=== PATIENT | female | born 1950 | race Caucasian/White ===

== ENCOUNTER 2020-08-09 11:29 | Outpatient (REF) | payer MEDICARE, BC, SELFPAY ==
--- NOTE | 2020-08-09 11:33 | MM_ITS ---
EXAMINATION: BONE DENSITOMETRY CLINICAL INDICATION: Age-related osteoporosis without current pathological fracture. COMPARISON: Baseline BD dated 07/19/2018. TECHNIQUE: Using a JDF DXA System (software version: 13.1) manufactured by [employer], dual-energy x-ray absorptiometry was performed of the lumbar spine and left hip. The images are of good technical quality. Summary results are attached. FINDINGS: AP SPINE L1-L4: Current: BMD 1.048 g/cm2, Z-score 0.5, T-score -1.1, osteopenia, 3.7% increase from baseline (<5% change is not significant). Baseline: BMD 1.011 g/cm2. LEFT FEMUR, NECK: Current: BMD 0.689 g/cm2, Z-score -0.8, T-score -2.5, osteoporosis. Baseline: BMD 0.674 g/cm2. LEFT FEMUR, TOTAL: Current: BMD 0.845 g/cm2, Z-score 0.2, T-score -1.3, osteopenia, 8.3% increase from baseline (<5% change is not significant). Baseline: BMD 0.780 g/cm2. IDENTIFIED RISK FACTORS: Menopause, family history (parental hip fracture). HISTORY OF FRACTURE: None listed. MEDICATIONS: Calcium supplements or multivitamin, vitamin D, bisphosphonates. MM/XR DEXA axial skeleton IMPRESSION: 1. DIAGNOSIS: Osteoporosis based on the lowest T-score value of -2.5 in the femoral neck applying World Health Organization criteria. 2. 10-YEAR FRACTURE RISK PREDICTION, FRAX: Major osteoporotic fracture (clinical spine, forearm, hip or shoulder) 25.1%. Hip fracture 11.3%. 3. Treatment Recommendations: NOF guidelines recommend consideration for treatment in postmenopausal women and men age 50 and older presenting with the following: -A hip or vertebral (clinical or morphometric) fracture. -T-score less than or equal to -2.5 at the femoral neck or spine after appropriate evaluation to exclude secondary causes. -Low bone mass at the hip or spine and a 10-year fracture probability by FRAX of greater than or equal to 3% for hip fracture or greater than or equal to 20% for major osteoporotic fracture based on the [place] adapted WHO algorithm. 4. Other Recommendations: All treatment decisions require clinical judgment and consideration of individual patient factors, including patient preferences, comorbidities, previous drug use, risk factors not captured in the FRAX model (e.g. frailty, falls, vitamin D deficiency, increased bone turnover, interval significant decline in bone density) and possible under or overestimation of fracture risk by FRAX. Additional medical evaluation for secondary cause of low bone mineral density may be appropriate. FUTURE SCAN RECOMMENDATION: People with diagnosed cases of osteoporosis or at high risk for fracture should have regular bone mineral density tests. For patients eligible for Medicare, routine testing is allowed once every 2 years. The testing frequency can be increased to one year for patients who have rapidly progressing disease, those who are receiving or discontinuing medical therapy to restore bone mass, or have additional risk factors.
== END 2020-08-09 11:30 | disposition home or self-care (01) ==
LOC: HO.MAMMO 11:29
PROVIDERS: PCP Internal Medicine; Visit Provider Internal Medicine Endocrinology, Diabetes & Metabolism
DX: M81.0 Age-related osteoporosis without current pathological fracture (principal)
CPT/HCPCS: 77080

== ENCOUNTER 2020-08-23 10:19 | Outpatient (REF) | payer MEDICARE, BC, SELFPAY ==
[2020-08-23 11:21] LABS: Hematocrit 37.7 % (37-47); Hemoglobin 12.9 g/dl (12.0-16.0); Mean Corpuscular HGB Conc 34.2 g/dl (31.0-35.0); Mean Corpuscular Hemoglobin 30.7 pg (27.0-33.0); Mean Corpuscular Volume 89.8 fL (80-98); Mean Platelet Volume 9.3 fL (9.4-12.3); Platelet Count 265 X10*3/uL (160-400); Red Cell Distribution Width 12.3 % (11.0-16.0); White Blood Count 6.7 X10*3/uL (4.8-10.8)
[2020-08-23 11:27] LABS: Estimated Average Glucose 111 mg/dL; Hemoglobin A1c % 5.5 %
[2020-08-23 11:43] LABS: Alanine Aminotransferase 16 U/L (0-31); Albumin Level 4.1 g/dL (3.5-5.0); Alkaline Phosphatase 63 U/L (39-117); Anion Gap 12 (12-20); Aspartate Amino Transferase 21 U/L (5-31); Bilirubin Total 0.5 mg/dL (0.0-1.0); Blood Urea Nitrogen 26 mg/dL (9-16); Calcium 8.9 mg/dL (8.4-10.2); Carbon Dioxide 27 mmol/L (22-29); Chloride 105 mmol/L (96-108); Cholesterol 164 mg/dL; Estimated Glomerular Filt Rate 56; Glucose Fasting 101 mg/dL (60-99); HDL Cholesterol 48 mg/dL; LDL Cholesterol Calculated 76 mg/dl; Potassium 4.2 mmol/l (3.3-5.1); Sodium 140 mmol/L (135-145); Total Protein 6.5 g/dL (6.5-8.0); Triglycerides 203 mg/dL
[2020-08-23 11:52] LABS: Thyroid Stimulating Hormone 2.09 uIU/mL (0.32-4.0); Vitamin D 25-OH Total 31.5 ng/mL (>30)
[2020-08-27 09:02] LABS: N-Telopeptide 15 (see note); NTXCreaRU 105 mg/dL (20-275)
== END 2020-08-23 10:20 | disposition home or self-care (01) ==
LOC: HO.HMGCLDS 10:19
PROVIDERS: PCP Internal Medicine; Visit Provider Internal Medicine Endocrinology, Diabetes & Metabolism
DX: M81.0 Age-related osteoporosis without current pathological fracture (principal); R73.03 Prediabetes; E78.5 Hyperlipidemia, unspecified
CPT/HCPCS: 36415; 80053; 80061; 82306; 82523; 83036; 84443; 85027

== ENCOUNTER → 2020-08-27 09:00 | Outpatient (BNVA) | payer MEDICARE, BC, SELFPAY | PROVIDERS: PCP Internal Medicine; Visit Provider Internal Medicine Endocrinology, Diabetes & Metabolism | DX: M81.0 Age-related osteoporosis without current pathological fracture (principal); E04.1 Nontoxic single thyroid nodule; Z87.898 Personal history of other specified conditions | CPT/HCPCS: 99212 ==

== ENCOUNTER 2020-09-13 10:17 | Outpatient (REF) | payer MEDICARE, BC, SELFPAY ==
--- NOTE | ~2020-09-13 | US_ITS ---
EXAMINATION: US THYROID CLINICAL INFORMATION: Nontoxic single thyroid nodule. COMPARISON: Ultrasound soft tissue head/neck thyroid dated 08/17/2016. TECHNIQUE: Linear transducer grayscale and color Doppler examination with attention to the region of the thyroid. FINDINGS: SIZE: Measurements of the thyroid lobes and nodules are given in sagittal, anteroposterior and transverse dimensions respectively. Right Thyroid Lobe: 4.7 x 1.2 x 1.6 cm, volume 4.8 mL. Previously 4.7 x 1.5 x 1.6 cm, volume 5.8 mL. Parenchyma: The gland echotexture is homogeneous. Thyroid vascularity is increased. Left Thyroid Lobe: 4.6 x 1.3 x 1.4 cm, volume 4.2 mL. Previously 4.2 x 1.2 x 1.5 cm, volume 3.8 mL. Parenchyma: The gland echotexture is homogeneous. Thyroid vascularity is increased. Isthmus: 0.3 cm in maximum AP dimension. Previously 0.2 cm. No focal thyroid nodule is seen. NODES: No lymphadenopathy is seen in the tissue surrounding the thyroid gland. US/US thyroid IMPRESSION: Normal thyroid ultrasound. No nodule seen.
== END 2020-09-13 10:18 | disposition home or self-care (01) ==
LOC: HO.HMGCX 10:17
PROVIDERS: PCP Internal Medicine; Visit Provider Internal Medicine Endocrinology, Diabetes & Metabolism
DX: E04.1 Nontoxic single thyroid nodule (principal)
CPT/HCPCS: 76536

== ENCOUNTER 2021-03-26 15:26 | Outpatient (REF) | payer MEDICARE, BC, SELFPAY | END 2021-03-26 15:27 | disposition home or self-care (01) | LOC: HO.LNP 15:26 | PROVIDERS: Visit Provider Physician Assistant | DX: J02.9 Acute pharyngitis, unspecified (principal); Z20.822 Contact with and (suspected) exposure to COVID-19 | CPT/HCPCS: U0003; U0005 ==

== ENCOUNTER 2021-09-13 09:12 | Outpatient (REF) | payer MEDICARE, BC, SELFPAY ==
[2021-09-13 11:45] LABS: Estimated Average Glucose 117 mg/dL; Hemoglobin A1c % 5.7 %
[2021-09-13 11:53] LABS: Appearance Urine HAZY; Color Urine YELLOW; Glucose Urine UA NEG (NEG); Leukocyte Esterase Urine TRACE (NEG); Nitrite Urine NEG (NEG); Specific Gravity - Urine >= 1.030 (1.005-1.025); Urine Blood TRACE (NEG); Urine Ketones 5 MG/DL (NEG); Urine Protein TRACE MG/DL (NEG-TRACE)
[2021-09-13 12:12] LABS: Alanine Aminotransferase 17 U/L (0-31); Alkaline Phosphatase 57 U/L (39-117); Anion Gap 11 (12-20); Aspartate Amino Transferase 20 U/L (5-31); Bilirubin Total 0.6 mg/dL (0.0-1.0); Blood Urea Nitrogen 21 mg/dL (9-16); Calcium 9.3 mg/dL (8.4-10.2); Carbon Dioxide 27 mmol/L (22-29); Chloride 107 mmol/L (96-108); Cholesterol 183 mg/dL; Estimated Glomerular Filt Rate 56; Glucose Fasting 100 mg/dL (60-99); HDL Cholesterol 43 mg/dL; LDL Cholesterol Calculated 87 mg/dl; Potassium 4.2 mmol/L (3.3-5.1); Sodium 141 mmol/L (135-145); Total Protein 6.5 g/dL (6.5-8.0); Triglycerides 266 mg/dL
[2021-09-13 12:21] LABS: TSH reflex Free T4 2.51 uIU/mL (0.32-4.0); Vitamin D 25-OH Total 34.2 ng/mL (>30)
[2021-09-13 12:28] LABS: Calcium Oxalate Crystals Urine 2+ /LPF; Mucus Urine 1+ /LPF; RBC Urine 0-2 /HPF (0); Squamous Epithelial Cell Urine 1+ /LPF; WBC Urine 0-2 /HPF (0-4)
== END 2021-09-13 09:13 | disposition home or self-care (01) ==
LOC: HO.HMGCLDS 09:12
PROVIDERS: Visit Provider Internal Medicine
DX: E55.9 Vitamin D deficiency, unspecified (principal); E78.5 Hyperlipidemia, unspecified; I10 Essential (primary) hypertension; M81.0 Age-related osteoporosis without current pathological fracture; Z87.898 Personal history of other specified conditions
CPT/HCPCS: 36415; 80053; 80061; 81001; 82306; 83036; 84443

== ENCOUNTER 2022-01-17 08:37 | Outpatient (REF) | payer MEDICARE, BC, SELFPAY ==
[2022-01-17 11:57] LABS: Estimated Average Glucose 111 mg/dL; Hemoglobin A1c % 5.5 %
[2022-01-17 12:04] LABS: Appearance Urine CLOUDY; Color Urine YELLOW; Glucose Urine UA NEG (NEG); Leukocyte Esterase Urine TRACE (NEG); Nitrite Urine NEG (NEG); Specific Gravity - Urine >= 1.030 (1.005-1.025); Urine Blood 1+ (NEG); Urine Ketones NEG (NEG); Urine Protein NEG (NEG-TRACE)
[2022-01-17 12:15] LABS: Alanine Aminotransferase 15 U/L (0-31); Albumin Level 4.1 g/dL (3.5-5.0); Alkaline Phosphatase 58 U/L (39-117); Anion Gap 11 (12-20); Aspartate Amino Transferase 18 U/L (5-31); Bilirubin Total 0.6 mg/dL (0.0-1.0); Blood Urea Nitrogen 26 mg/dL (9-16); Calcium 9.3 mg/dL (8.4-10.2); Carbon Dioxide 28 mmol/L (22-29); Chloride 107 mmol/L (96-108); Cholesterol 159 mg/dL; Estimated Glomerular Filt Rate 53; Glucose Fasting 103 mg/dL (60-99); HDL Cholesterol 45 mg/dL; LDL Cholesterol Calculated 84 mg/dl; Potassium 4.2 mmol/L (3.3-5.1); Sodium 142 mmol/L (135-145); Total Protein 6.4 g/dL (6.5-8.0); Triglycerides 154 mg/dL
[2022-01-17 12:48] LABS: Amorphous Sediment Urine 3+ /LPF; Calcium Oxalate Crystals Urine 1+ /LPF; Mucus Urine 2+ /LPF; Squamous Epithelial Cell Urine 2+ /LPF
== END 2022-01-17 08:38 | disposition home or self-care (01) ==
LOC: HO.HMGCLDS 08:37
PROVIDERS: PCP Internal Medicine; Visit Provider Physician Assistant Medical
DX: I10 Essential (primary) hypertension (principal); E78.5 Hyperlipidemia, unspecified; L21.8 Other seborrheic dermatitis; B35.1 Tinea unguium
CPT/HCPCS: 36415; 80053; 80061; 81001; 83036

== ENCOUNTER 2022-01-23 11:50 | Outpatient (REF) | payer MEDICARE, BC, SELFPAY ==
[2022-01-23 14:18] LABS: Appearance Urine CLEAR; Color Urine YELLOW; Glucose Urine UA NEG (NEG); Leukocyte Esterase Urine NEG (NEG); Nitrite Urine NEG (NEG); Specific Gravity - Urine <= 1.005 (1.005-1.025); Urine Blood TRACE (NEG); Urine Ketones NEG (NEG); Urine Protein NEG (NEG-TRACE)
[2022-01-23 14:40] LABS: RBC Urine 0-2 /HPF (0); Squamous Epithelial Cell Urine 1+ /LPF; WBC Urine 0-2 /HPF (0-4)
== END 2022-01-23 11:51 | disposition home or self-care (01) ==
LOC: HO.HMGCLDS 11:50
PROVIDERS: PCP Internal Medicine; Visit Provider Internal Medicine
DX: E55.9 Vitamin D deficiency, unspecified (principal); M81.0 Age-related osteoporosis without current pathological fracture
CPT/HCPCS: 36415; 81001; 82306

== ENCOUNTER 2022-03-28 16:06 | Outpatient (REF) | payer MEDICARE, BC, SELFPAY ==
--- NOTE | ~2022-03-28 | XR_ITS ---
EXAMINATION: XR LUMBOSACRAL SPINE CLINICAL INFORMATION: Foot neuropathy COMPARISON: Previous x-ray June 2018 TECHNIQUE: Three views of the lumbosacral spine. FINDINGS: There is thick millimeter anterior subluxation of L4 with respect L5 and L5 with respect to S1. This appears unchanged. Bone alignment is otherwise normal. No fracture or dislocation is seen. There is degenerative disc disease at L1-L2, L4-L5 and L5-S1. There is lower lumbar spine facet arthritis. There is evidence of atherosclerotic disease. XR/XR lumbar spine 2-3V IMPRESSION: 6 mm anterior subluxation of L4 with respect L5 and L5 with respect to S1. 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 Findings are similar to 2018 exam.
== END 2022-03-28 16:07 | disposition home or self-care (01) ==
LOC: HO.XRAY 16:06
PROVIDERS: PCP Internal Medicine; Visit Provider Podiatrist
DX: M47.816 Spondylosis without myelopathy or radiculopathy, lumbar region (principal); G62.9 Polyneuropathy, unspecified
CPT/HCPCS: 72100

== ENCOUNTER 2022-06-10 13:32 | Outpatient (REF) | payer MEDICARE, BC, SELFPAY ==
[2022-06-10 14:38] LABS: Influenza A PCR NEGATIVE (Negative); Influenza B PCR NEGATIVE (Negative); Resp Syncy Virus RNA Qual PCR NEGATIVE (Negative); SARS COV2 PCR INHOUSE NEGATIVE (Negative)
== END 2022-06-10 13:33 | disposition home or self-care (01) ==
LOC: HO.LNP 13:32
PROVIDERS: Visit Provider Nurse Practitioner Acute Care
DX: Z20.822 Contact with and (suspected) exposure to COVID-19 (principal)
CPT/HCPCS: 0241U

== ENCOUNTER 2022-07-12 09:39 | Outpatient (REF) | payer MEDICARE, BC, SELFPAY ==
[2022-07-12 11:19] LABS: MANUAL DIFF FLAG NO
[2022-07-12 11:33] LABS: Appearance Urine Clear; Color Urine Yellow; Glucose Urine UA Negative (Negative); Leukocyte Esterase Urine Moderate (2+) (Negative); Nitrite Urine Negative (Negative); PH 5.5 (5.0-9.0); UMIC TRIGGER UA YES; Urine Blood Negative (Negative); Urine Ketones Negative (Negative); Urine Protein Negative (Neg-Trace)
[2022-07-12 11:34] LABS: Basophils Absolute Auto 0.1 X10*3/uL (0.0-0.2); Basophils Percent Auto 0.8 % (0-2); Eosinophils Absolute Auto 0.4 X10*3/uL (0.0-0.4); Eosinophils Percent Auto 5.8 % (0-4); Hematocrit 37.2 % (37.0-47.0); Hemoglobin 12.3 g/dl (12.0-16.0); Imm Gran Abs Auto 0.02 X10*3/uL (0.00-0.03); Imm Gran Pct Auto 0.3 % (0.0-0.4); Lymphocytes Absolute Auto 2.8 X10*3/uL (1.2-4.9); Lymphocytes Percent Auto 39.5 % (20-40); Mean Corpuscular HGB Conc 33.1 g/dl (31.0-35.0); Mean Corpuscular Hemoglobin 30.2 pg (27.0-33.0); Mean Corpuscular Volume 91.4 fL (80.0-98.0); Mean Platelet Volume 9.4 fL (9.4-12.3); Monocytes Absolute Auto 0.8 X10*3/uL (0.1-1.2); Monocytes Percent Auto 10.6 % (2-11); Neutrophils Absolute Auto 3.1 x10*3/uL (2.0-8.3); Platelet Count 261 X10*3/uL (160-400); Red Blood Count 4.07 X10*6/uL (4.20-5.50); Red Cell Distribution Width 12.9 % (11.0-16.0); White Blood Count 7.2 X10*3/uL (4.8-10.8)
[2022-07-12 11:47] LABS: Bacteria Urine None Seen (None Seen); RBC Urine 0-2 /HPF (0-2); WBC Urine 0-5 /HPF (0-5)
[2022-07-12 12:10] LABS: Alanine Aminotransferase 19 U/L (0-31); Albumin Level 4.1 g/dL (3.5-5.0); Alkaline Phosphatase 60 U/L (39-117); Anion Gap 10 (12-20); Aspartate Amino Transferase 23 U/L (5-31); Bilirubin Total 0.5 mg/dL (0.0-1.0); Blood Urea Nitrogen 20 mg/dL (9-16); Calcium 9.4 mg/dL (8.4-10.2); Carbon Dioxide 28 mmol/L (22-29); Chloride 107 mmol/L (96-108); Cholesterol 176 mg/dL; Estimated Glomerular Filt Rate 56; Glucose Fasting 102 mg/dL (60-99); HDL Cholesterol 49 mg/dL; LDL Cholesterol Calculated 95 mg/dl; Potassium 4.3 mmol/L (3.3-5.1); Sodium 141 mmol/L (135-145); Total Protein 6.3 g/dL (6.5-8.0); Triglycerides 164 mg/dL; Vitamin D 25-OH Total 36.3 ng/mL (>30)
== END 2022-07-12 09:40 | disposition home or self-care (01) ==
LOC: HO.HMGCLDS 09:39
PROVIDERS: PCP Internal Medicine; Visit Provider Internal Medicine
DX: E55.9 Vitamin D deficiency, unspecified (principal); E78.5 Hyperlipidemia, unspecified; I10 Essential (primary) hypertension; M81.0 Age-related osteoporosis without current pathological fracture; Z87.898 Personal history of other specified conditions
CPT/HCPCS: 36415; 80053; 80061; 81001; 82306; 85025

== ENCOUNTER 2022-08-10 12:41 | Outpatient (REF) | payer MEDICARE, BC, SELFPAY ==
--- NOTE | ~2022-08-10 | MM_ITS ---
EXAMINATION: BONE DENSITOMETRY CLINICAL INDICATION: Age-related osteoporosis without current pathological fracture. COMPARISON: Previous BD dated 08/09/2020 and baseline BD dated 07/19/2018. TECHNIQUE: Using a [employer] DXA System (software version: 13.1) manufactured by [employer], dual-energy x-ray absorptiometry was performed of the lumbar spine and left hip. The images are of good technical quality. Summary results are attached. FINDINGS: AP SPINE L1-L4: Current: BMD 1.109 g/cm2, Z-score 1.2, T-score -0.6, normal, 5.8% increase from previous, 9.7% increase from baseline (<5% change is not significant). Prior: BMD 1.048 g/cm2. Baseline: BMD 1.011 g/cm2. LEFT FEMUR, NECK: Current: BMD 0.719 g/cm2, Z-score -0.4, T-score -2.3, osteopenia. Prior: BMD 0.689 g/cm2. Baseline: BMD 0.674 g/cm2. LEFT FEMUR, TOTAL: Current: BMD 0.855 g/cm2, Z-score 0.5, T-score -1.2, osteopenia, 1.2% increase from previous, 9.6% increase from baseline (<5% change is not significant). Prior: BMD 0.845 g/cm2. Baseline: BMD 0.780 g/cm2. IDENTIFIED RISK FACTORS: Osteoporosis. Height loss. Parental hip fracture. Menopause. HISTORY OF FRACTURE: None listed. MEDICATIONS: Calcium supplement and/or multivitamin. Vitamin D. Bisphosphonates. MM/XR DEXA axial skeleton IMPRESSION: 1. DIAGNOSIS: Osteopenia based on the lowest T-score value of -2.3 in the femoral neck applying World Health Organization criteria. 2. 10-YEAR FRACTURE RISK PREDICTION, FRAX: Major osteoporotic fracture (clinical spine, forearm, hip or shoulder) 25.6%. Hip fracture 14.3%. 3. Treatment Recommendations: NOF guidelines recommend consideration for treatment in postmenopausal women and men age 50 and older presenting with the following: -A hip or vertebral (clinical or morphometric) fracture. -T-score less than or equal to -2.5 at the femoral neck or spine after appropriate evaluation to exclude secondary causes. -Low bone mass at the hip or spine and a 10-year fracture probability by FRAX of greater than or equal to 3% for hip fracture or greater than or equal to 20% for major osteoporotic fracture based on the [place] adapted WHO algorithm. 4. Other Recommendations: All treatment decisions require clinical judgment and consideration of individual patient factors, including patient preferences, comorbidities, previous drug use, risk factors not captured in the FRAX model (e.g. frailty, falls, vitamin D deficiency, increased bone turnover, interval significant decline in bone density) and possible under or overestimation of fracture risk by FRAX. Additional medical evaluation for secondary cause of low bone mineral density may be appropriate. FUTURE SCAN RECOMMENDATION: People with diagnosed cases of osteoporosis or at high risk for fracture should have regular bone mineral density tests. For patients eligible for Medicare, routine testing is allowed once every 2 years. The testing frequency can be increased to one year for patients who have rapidly progressing disease, those who are receiving or discontinuing medical therapy to restore bone mass, or have additional risk factors.
== END 2022-08-10 12:42 | disposition home or self-care (01) ==
LOC: HO.MAMMO 12:41
PROVIDERS: PCP Internal Medicine; Visit Provider Internal Medicine
DX: Z13.820 Encounter for screening for osteoporosis (principal); M81.0 Age-related osteoporosis without current pathological fracture; Z78.0 Asymptomatic menopausal state
CPT/HCPCS: 77080

== ENCOUNTER 2022-08-30 08:21 | Outpatient (REF) | payer MEDICARE, BC, SELFPAY ==
--- NOTE | ~2022-08-30 | US_ITS ---
EXAMINATION: US ABDOMEN COMPLETE CLINICAL INFORMATION: Other specified diseases of liver. COMPARISON: None TECHNIQUE: Real-time imaging of the abdominal viscera. FINDINGS: PANCREAS: Normal. ABDOMINAL AORTA: The proximal, mid, and distal segments are normal in caliber. INFERIOR VENA CAVA: Visualized portions are normal. LIVER: The liver is normal in size. The liver contour is normal. Diffuse increased echogenicity of the liver parenchyma. 1.7 cm right hepatic lobe cyst. There is no intrahepatic biliary duct dilatation seen. GALLBLADDER: Surgically absent. COMMON BILE DUCT: Normal in caliber measuring 0.5 cm in diameter. RIGHT KIDNEY: 1.1 cm benign-appearing cyst. No hydronephrosis or renal calculi. The kidney measures 8.8 cm in maximum dimension. LEFT KIDNEY: 2 mm nonobstructing stone. No hydronephrosis or focal parenchymal lesions. The kidney measures 9.3 cm in maximum dimension. SPLEEN: Normal. The spleen measures 6.8 cm in maximum dimension. FREE FLUID: None. US/US abdomen complete IMPRESSION: 1. Diffuse increased echogenicity of the liver parenchyma. This is a nonspecific finding but most commonly on the basis of diffuse hepatocellular disease such as hepatic steatosis. 2. 2 mm nonobstructing left renal stone. No hydronephrosis. 3. Benign-appearing right renal cyst. Followup imaging is not routinely recommended for benign appearing cysts.
== END 2022-08-30 08:22 | disposition home or self-care (01) ==
LOC: HO.HMGCX 08:21
PROVIDERS: PCP Internal Medicine; Visit Provider Internal Medicine
DX: K76.89 Other specified diseases of liver (principal)
CPT/HCPCS: 76700

== ENCOUNTER 2023-02-08 08:42 | Outpatient (REF) | payer MEDICARE, BC, SELFPAY | END 2023-02-08 08:43 | disposition home or self-care (01) | LOC: HO.HMGCLDS 08:42 | PROVIDERS: PCP Internal Medicine; Visit Provider Internal Medicine | DX: E78.5 Hyperlipidemia, unspecified (principal); I10 Essential (primary) hypertension; M81.0 Age-related osteoporosis without current pathological fracture | CPT/HCPCS: 36415; 80053; 80061; 82306; 85025 ==

== ENCOUNTER 2023-02-15 10:23 | Outpatient (AMB) | payer MEDICARE, BC, SELFPAY ==
[2023-02-15 10:25] VITALS: BP 118/66; PULSE 82; O2SAT 99; BMI 27.7
--- NOTE | 2023-02-15 10:25 | MHC.PC.OV ---
Vital Signs 02/15/23 10:25 Height 5 ft Weight 142 lb BMI 27.7 BP 118/66 Blood Pressure Location Lt brachial Position Sitting Pulse 82 Pulse Source Pulse Oximeter Pulse Oximetry (%) 99 Oxygen Delivery Method Room Air Intake Visit Reasons: Annual Physical Intake Note: Pt is here today for PE. Pt states that she had a rash on her face and she was seen in a walk in a week ago. Pt states that the rash spread on her arms. SHe saw Laboratory Aide and she is on creams for it. Allergies Iodinated Contrast Media [IV DYE, IODINE CONTAINING] Allergy (Intermediate, Verified 02/15/23 10:28) ITCHING Swrnxut-SIM-RxG Reductase Inhibitor [[id number] REDUCTASE INHIBITOR] Allergy (Intermediate, Verified 02/15/23 10:28) ITCHING cinnamon Allergy (Unknown, Verified 02/15/23 10:28) Hives fluoxetine [Prozac] Allergy (Unknown, Verified 02/15/23 10:28) rash on face, mouth itch iodine Allergy (Unknown, Verified 02/15/23 10:28) pruritis statins Allergy (Unknown, Uncoded 02/15/23 10:28) bump on lid and itchy eyes Medication List - Last Reconciled 02/15/23 by Barbra Grimaldo MD brinzolamide-brimonidine 1-0.2 % drps ophthalmic (eye) ONCE desonide 0.05% appl topical desoximetasone 0.25% 1 appl topical DAILY PRN fluocinonide 0.05% mL topical gabapentin 200 mg (2 x 100 mg) PO DAILY ivermectin 1% (Soolantra) 1 appl topical DAILY multivitamin 1 tab PO DAILY olmesartan 10 mg (2 x 5 mg) PO DAILY rosuvastatin 10 mg PO DAILY tretinoin 0.025% (Retin-A) appl topical Tobacco use date assessed: 02/15/23 Dental Screening Dental Screen Date: 02/15/23 Did you have a dental visit in the last 12 months?: Yes Did you have a dental problem in the last 6 months where you did not have access to dental care?: No Was dental information given to patient?: Patient has dentist HPI Annual Physical HPI Details Pt presents for PE. Patient follows up with [facility] for chronic lumbar radiculopathy with left foot numbness but not weakness [facility] Medical History Dysuria Glaucoma Hematuria History of prediabetes HTN (hypertension) Hyperlipidemia Mammogram normal Normal colonoscopy Osteoporosis Plant dermatitis Rosacea Thyroid nodule Vitamin D deficiency Surgical History H/O colonoscopy History of tonsillectomy Remove/insert IUD Family History Father Pemphigus Mother HTN (hypertension) Osteoporosis Sister Fibromyalgia CLL (chronic lymphocytic leukemia) Schizoaffective disorder Maternal Grandfather No problems noted. Maternal Grandmother Diabetes mellitus Paternal Grandmother Cirrhosis of liver Paternal Grandfather Throat cancer Mouth cancer Daughter No problems noted. Other Mental health disorder Social History Housing: House Alcohol intake: never Patient Tobacco Use Status: Never used Tobacco e-Cigarette/Vaping Use: Never Used Second Hand Smoke Exposure: Yes (daughter smokes, but not in the house ) Current occupational status: retired Cognitive needs: No Hearing needs: No Vision needs: Yes Questionnaire PHQ-9 Over the last 2 weeks, how often have you been bothered by any of the following problems? 1. Little interest or pleasure in doing things: not at all 2. Feeling down, depressed, or hopeless: not at all 3. Trouble falling or staying asleep, or sleeping too much: nearly every day 4. Feeling tired or having little energy: not at all 5. Poor appetite or overeating: not at all 6. Feeling bad about yourself - or that you are a failure or have let yourself or your family down: several days 7. Trouble concentrating on things, such as reading the newspaper or watching television: not at all 8. Moving or speaking so slowly that other people could have noticed. Or the opposite - being so fidgety or restless that you have been moving around a lot more than usual: not at all 9. Thoughts that you would be better off or of hurting yourself in some way: not at all Total score: 4 Depression Screening Interpretation: Negative Source: Developed by Drs. Siddharth Giron, SunBjorn Worthington and colleagues, with an educational rogerio from [employer]. Thrive Questionnaire Date Thrive assessed: 02/15/23 I am a: Patient What is your living situation today?: I have a steady place to live Within the past 12 months, did the food you bought not last and you didn't have the money to get more?: Never true Within the past 12 months, did you worry whether your food would run out before you got money to buy more?: Never true Do you have trouble paying for medicines?: No Do you have trouble getting transportation to medical appointments?: No Do you have trouble paying your heating and electricity bill?: No Do you have trouble taking care of your child, family member or friend?: No Do you have trouble with day-to-day activities such as bathing, preparing meals, shopping, managing finances, etc.?: No Are you currently unemployed and looking for a job?: No Are you interested in more education?: No Please select the resources that you would like help with: None Currently or been in a relationship where the following occur: no concerns reported AUDIT C Alcohol Use Questionnaire (AUDIT-C) 1. How often do you have a drink containing alcohol?: Monthly or less 2. How many drinks containing alcohol do you have on a typical day when you are drinking?: 1 or 2 3. How often do you have six or more drinks on one occasion?: Never Total Score: 1 KAVON-7 AMB Questionnaire KAVON-7 Date KAVON - 7 assessed: 02/15/23 Feeling nervous, anxious, or on edge: 0 = Not at all Not being able to stop or control worryin = Not at all Worrying too much about different things: 0 = Not at all Trouble relaxin = Not at all Being so restless that it is hard to sit still: 0 = Not at all Becoming easily annoyed or irritable: 1 = Several days Feeling afraid as if something awful might happen: 0 = Not at all Total KAVON-7 score (0-4 normal; 5-9 mild; 10-14 moderate; 15-21 severe): 1 Source: Developed by Sun Cardenas Kurt Kroenke and colleagues, with an educational rogerio from [employer]. Review of Systems Const All systems reviewed & are unremarkable except as noted in HPI and below Reports no additional complaints Eyes Reports no additional complaints ENT Reports no additional complaints Card Reports no additional complaints Resp Reports no additional complaints GI Reports no additional complaints Reports no additional complaints Musc Reports no additional complaints Physical exam (Primary Care) Vital Signs: Last Vital Signs Pulse 82 02/15/23 10:25 BP 118/66 02/15/23 10:25 Pulse Ox 99 02/15/23 10:25 Oxygen Delivery Method Room Air 02/15/23 10:25 BMI result Body Mass Index 27.7 Tobacco/Smoking Status: Tobacco use Status Tobacco use date assessed 02/15/23 02/15/23 10:34 Patient Tobacco Use Status Never used Tobacco 02/15/23 10:30 e-Cigarette/Vaping Use Never Used 02/15/23 10:30 PHQ-9: PHQ-9 Score PHQ-9: Total score 4 02/15/23 10:42 Depression Screening Interpretation: Negative Thrive Assessment: Date of Thrive Assessment Date Thrive assessed 02/15/23 02/15/23 10:42 Currently or been in a relationship where the following occur: no concerns reported Const General: no acute distress HENMT Head: Yes normal to inspection Ears: hearing grossly normal bilaterally Face and sinus: Yes normal facial exam Throat: Yes posterior oropharynx normal Eyes General: appearance normal, both eyes and all related structures Neck Neck: Yes no lymphadenopathy and Yes supple Resp Effort & Inspection: normal respiratory effort Auscultation: clear to auscultation bilaterally Cardio Rhythm: regular rhythm Heart sounds: S1 normal heart sound present and S2 normal heart sound present GI Inspection: Yes normal to inspection Palpation (GI): Soft to palpation Percussion: Yes normal to percussion Auscultation: normal bowel sounds Extrem General: Yes no clubbing, cyanosis or edema Assessment and Plan Assessment & Plan (1) Lumbar back pain with radiculopathy affecting left lower extremity: Code(s): M54.16 - Radiculopathy, lumbar region Plan: [facility] and continue gabapentin as needed (2) HTN (hypertension): Code(s): I10 - Essential (primary) hypertension Plan: Continue olmesartan (3) Hyperlipidemia: Code(s): E78.5 - Hyperlipidemia, unspecified Plan: Continue statin (4) Osteoporosis: Comment: DEXA 08/2020, SD -2.5, on Fosamax since 08/2017, DEXA 08/28 OTEOPENIA, pt will stop Fosamax 08/28 and repeat DEXA in 2 yrs Code(s): M81.0 - Age-related osteoporosis without current pathological fracture Qualifiers: Osteoporosis type: age-related Presence of current pathological fracture: without current pathological fracture Qualified Code(s): M81.0 - Age-related osteoporosis without current pathological fracture Plan: Continue vitamin-D and regular physical activity (5) Annual physical exam: Code(s): Z00.00 - Encounter for general adult medical examination without abnormal findings Plan: Well-balanced diet and regular exercise discussed with the patient. she will return in 1 year for a physical Orders: Orders Comprehensive [place]. Panel Fast 365 Days E55.9 - Vitamin D deficiency, unspecified, E78.5 - Hyperlipidemia, unspecified, I10 - Essential (primary) hypertension, M81.0 - Age-related osteoporosis without current pathological fracture, Z00.00 - Encounter for general adult medical examination without abnormal findings Lipid Panel 365 Days E55.9 - Vitamin D deficiency, unspecified, E78.5 - Hyperlipidemia, unspecified, I10 - Essential (primary) hypertension, M81.0 - Age-related osteoporosis without current pathological fracture, Z00.00 - Encounter for general adult medical examination without abnormal findings TSH reflex Free T4 365 Days E55.9 - Vitamin D deficiency, unspecified, E78.5 - Hyperlipidemia, unspecified, I10 - Essential (primary) hypertension, M81.0 - Age-related osteoporosis without current pathological fracture, Z00.00 - Encounter for general adult medical examination without abnormal findings Vitamin D 25-OH Total 365 Days E55.9 - Vitamin D deficiency, unspecified, E78.5 - Hyperlipidemia, unspecified, I10 - Essential (primary) hypertension, M81.0 - Age-related osteoporosis without current pathological fracture, Z00.00 - Encounter for general adult medical examination without abnormal findings Complete Blood Count Auto Diff 365 Days E55.9 - Vitamin D deficiency, unspecified, E78.5 - Hyperlipidemia, unspecified, I10 - Essential (primary) hypertension, M81.0 - Age-related osteoporosis without current pathological fracture, Z00.00 - Encounter for general adult medical examination without abnormal findings Coding Level of Care Code Est Pt Prev Care >65y(55777) Diagnoses Lumbar back pain with radiculopathy affecting left lower extremity M54.16 HTN (hypertension) I10 Hyperlipidemia E78.5 Osteoporosis M81.0 Osteoporosis type: age-related Presence of current pathological fracture: without current pathological fracture Annual physical exam Z00.00
== END 2023-02-15 11:10 | disposition home or self-care (01) ==
PROVIDERS: Visit Provider Internal Medicine
DX: Z00.00 Encounter for general adult medical examination without abnormal findings (principal); M54.16 Radiculopathy, lumbar region; I10 Essential (primary) hypertension; E78.5 Hyperlipidemia, unspecified; M81.0 Age-related osteoporosis without current pathological fracture
CPT/HCPCS: 99397

== ENCOUNTER 2023-08-28 09:22 | Outpatient (AMB) | payer MEDICARE, BC, SELFPAY ==
[2023-08-28 10:41] VITALS: BP 122/74; PULSE 84; TEMP 36.4; O2SAT 98
--- NOTE | 2023-08-28 10:41 | MHC.OFFWIV ---
Intake Vital Signs 08/28/23 10:41 Height 5 ft BP 122/74 Blood Pressure Location Lt brachial Position Sitting Pulse 84 Pulse Source Pulse Oximeter Temp 97.6 F Temp Source Oral Pulse Oximetry (%) 98 Intake Visit Reasons: EP Diarrhea 6 days Intake Note: pt is here for c.o having diarrhea for 6 days but it stopped a week ago, patient concerned about possible diverticulitis Patient Tobacco Use Status: Never used Tobacco Allergies Iodinated Contrast Media [IV DYE, IODINE CONTAINING] Allergy (Intermediate, Verified 08/28/23 10:42) ITCHING Alshsnu-DZN-ZaA Reductase Inhibitor [[id number]-[id number]-BTT REDUCTASE INHIBITOR] Allergy (Intermediate, Verified 08/28/23 10:42) ITCHING cinnamon Allergy (Unknown, Verified 08/28/23 10:42) Hives fluoxetine [Prozac] Allergy (Unknown, Verified 08/28/23 10:42) rash on face, mouth itch iodine Allergy (Unknown, Verified 08/28/23 10:42) pruritis statins Allergy (Unknown, Uncoded 02/15/23 10:28) bump on lid and itchy eyes Do you need a note to return to daycare/school/sports/work: No HPI HPI Comments History of Present Illness Details This is a 72-year-old female with a past medical history of hypertension, hyperlipidemia, glaucoma and cholecystectomy presenting for evaluation of diarrhea that she had for a period of 6 days that has been resolved for the past 8 days. Patient states she was initially having diarrhea 1 to 2 times a day for a total of 6 days. Patient Patient's last bowel movement was 2 days ago and it was mostly formed. Patient denies having any fevers, chills, nausea, vomiting, dark or bloody stools, dysuria, urinary frequency or abdominal pain. Patient comes concerned about diverticulitis as a friend told her that she may need antibiotic therapy. [facility] Medical History Vitamin D deficiency HTN (hypertension) Dysuria Thyroid nodule History of prediabetes Glaucoma Normal colonoscopy Mammogram normal Osteoporosis Plant dermatitis Hematuria Rosacea Hyperlipidemia Surgical History H/O colonoscopy History of tonsillectomy Remove/insert IUD Family History Father Pemphigus Mother HTN (hypertension) Osteoporosis Sister Fibromyalgia CLL (chronic lymphocytic leukemia) Schizoaffective disorder Maternal Grandfather No problems noted. Maternal Grandmother Diabetes mellitus Paternal Grandmother Cirrhosis of liver Paternal Grandfather Throat cancer Mouth cancer Daughter No problems noted. Other Mental health disorder Social History Housing: House Alcohol intake: never Patient Tobacco Use Status: Never used Tobacco e-Cigarette/Vaping Use: Never Used Second Hand Smoke Exposure: Yes (daughter smokes, but not in the house ) Current occupational status: retired Cognitive needs: No Hearing needs: No Vision needs: Yes Review of Systems Const All systems reviewed & are unremarkable except as noted in HPI and below Denies chills, Denies fever(s) and Denies malaise Eyes Reports no additional complaints ENT Reports no additional complaints Card Reports no additional complaints GI Reports no additional complaints and Reports loose stools Reports no additional complaints Psych Reports no additional complaints Physical Exam Vital Signs: Last Vital Signs Temp 97.6 F 08/28/23 10:41 Pulse 84 08/28/23 10:41 BP 122/74 08/28/23 10:41 Pulse Ox 98 08/28/23 10:41 Const General: cooperative, healthy appearing, comfortable and no acute distress Nutritional Appearance: average body habitus Orientation/consciousness: patient oriented x3 Limitations: no limitations Resp Effort & Inspection: normal respiratory effort and able to speak in complete sentences Auscultation: clear to auscultation bilaterally Cardio Rate: regular rate Rhythm: regular rhythm GI Inspection: Yes normal to inspection Palpation (GI): Soft to palpation, not firm, nontender, no guarding, not rigid and no masses Percussion: Yes normal to percussion Auscultation: normal bowel sounds, no high pitched sounds, no hyperactive bowel sounds and no hypoactive bowel sounds Rectal Exam - Female: deferred Skin General skin exam: no rashes or lesions noted Neuro General: patient oriented x3 Psych Appearance: grossly normal Mental Status: mental status grossly normal Insight: Good insight present (Psych) Judgement: Good judgement present (Psych) Assessment & Plan Assessment & Plan (1) Diarrhea: Comment: Patient's symptoms have resolved, she is afebrile and there is no abdominal pain on clinical examination. Code(s): R19.7 - Diarrhea, unspecified Plan: No further testing or treatment is warranted at this time. Patient is instructed to follow up with her primary care provider as an outpatient if her symptoms recur. Coding Level of Care Code Est Pt Level 3 (67517) Diagnoses Diarrhea R19.7 Time Spent (min) 20
== END 2023-08-28 12:02 | disposition home or self-care (01) ==
PROVIDERS: PCP Internal Medicine; Visit Provider Physician Assistant
DX: R19.7 Diarrhea, unspecified (principal)
CPT/HCPCS: 99213